=== PATIENT | male | born 2000 | race Caucasian/White ===

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

== ENCOUNTER 2024-07-10 10:53 | Inpatient (IN) | payer OTHER ==
[2024-07-10 11:28] VITALS: BMI 26.6
[2024-07-10] MEDS ORDERED: ACETAMINOPHEN INJECTION 100 ML ONE (11:54)
[2024-07-10 11:58] LABS: BASO % 0.5 % (0-2.0); EOS % 0.6 % (0-4.5); HEMATOCRIT 45.8 % (35.4-49); HEMOGLOBIN 15.3 GM/dL (11.7-16.9); LYMPH % 27.6 % (8-40); MCHC 33.4 g/dl (32.0-35.9); MEAN PLT VOLUME 6.6 fl (7.5-11.1); MONO % 4.1 % (3.8-10.2); NEUT % 67.2 % (42.8-82.8); PLATELET COUNT 278 10^3/uL (134-434); RBC 5.46 M/mm3 (4.00-5.60); WHITE BLOOD COUNT 10.5 K/mm3 (4.0-10.0)
[2024-07-10 12:08] LABS: INR 1.05 (0.83-1.09); PROTHROMBIN TIME (PATIENT) 12.1 SEC (9.7-13.0)
[2024-07-10 12:13] LABS: POTASSIUM 4.8 mmol/L (3.5-5.1)
[2024-07-10 12:15] LABS: ALBUMIN 4.5 g/dl (3.4-5.0); BLOOD UREA NITROGEN 6.6 mg/dL (7-18); CALCIUM 9.9 mg/dL (8.5-10.1)
[2024-07-10 12:19] LABS: CREATININE 0.9 mg/dL (0.55-1.3)
[2024-07-10 12:19] LABS: URINE APPEARANCE CLEAR; URINE BILIRUBIN NEGATIVE (NEGATIVE); URINE COLOR YELLOW; URINE GLUCOSE (UA) NEGATIVE (NEGATIVE); URINE KETONE NEGATIVE (NEGATIVE); URINE LEUK ESTERASE NEGATIVE (NEGATIVE); URINE NITRITE NEGATIVE (NEGATIVE); URINE PROTEIN NEGATIVE (NEGATIVE); URINE UROBILINOGEN 0.2 mg/dL (0.2-1.0)
[2024-07-10 12:21] LABS: TOT PROT 7.9 g/dl (6.4-8.2)
[2024-07-10] MEDS: ACETAMINOPHEN 1000 MG/100 ML BAG IVPB ONE (12:26)
[2024-07-10] MEDS: SODIUM CHLORIDE 1,000 ML IV STA (12:26)
[2024-07-10] MEDS ORDERED: PIPERACILLIN/TAZOB 3.375 GM 3.375 GM/50 ML BAG IVPB ONE (14:54)
[2024-07-10] MEDS: PIPERACILLIN/TAZOB 3.375 GM 3.375 GM in DEXTROSE 5%-WATER - 50 ML IVPB ONE (15:06)
[2024-07-10] MEDS: DEXTROSE 5%-0.2% SALINE - 1,000 ML IV SCH (15:06)
[2024-07-10] MEDS ORDERED: MORPHINE SULFATE 2 MG/ML SYRINGE IVPUSH PRN (16:10)
[2024-07-10] MEDS ORDERED: ACETAMINOPHEN 1000 MG/100 ML BAG IVPB PRN (16:12)
[2024-07-11] MEDS ORDERED: HEPARIN NA (PORCINE) 5,000 UNITS/ML 1ML VIAL ONE (07:07)
[2024-07-11] MEDS ORDERED: BUPIVACAINE HCL/PF 0.25% (2.5MG/ML) 10 ML VIAL ONE ×2 (07:07→11:07)
[2024-07-11] MEDS ORDERED: cefOXitin SODIUM 2 GM VIAL (RESTRICTED TO ID) IVPB ONE (07:07)
[2024-07-11 08:56] LABS: BASO % 0.8 % (0-2.0); EOS % 1.1 % (0-4.5); HEMATOCRIT 43.3 % (35.4-49); HEMOGLOBIN 14.3 GM/dL (11.7-16.9); LYMPH % 29.1 % (8-40); MCH 28.3 pg (25.7-33.7); MEAN CELL VOLUME 85.7 fl (80-96); MEAN PLT VOLUME 7.3 fl (7.5-11.1); MONO % 5.4 % (3.8-10.2); NEUT % 63.6 % (42.8-82.8); PLATELET COUNT 263 10^3/uL (134-434); RBC 5.05 M/mm3 (4.00-5.60); RDW 12.9 % (11.9-15.9); WHITE BLOOD COUNT 6.9 K/mm3 (4.0-10.0)
[2024-07-11 09:18] LABS: POTASSIUM 4.6 mmol/L (3.5-5.1)
[2024-07-11 09:21] LABS: CALCIUM 9.4 mg/dL (8.5-10.1)
[2024-07-11 09:22] LABS: BLOOD UREA NITROGEN 6.6 mg/dL (7-18)
[2024-07-11 09:25] LABS: ALBUMIN 3.8 g/dl (3.4-5.0); CREATININE 0.9 mg/dL (0.55-1.3)
[2024-07-11 09:26] LABS: BILIRUBIN,TOTAL 0.9 mg/dL (0.2-1); TOT PROT 6.9 g/dl (6.4-8.2)
[2024-07-11] MEDS: CEFAZOLIN SODIUM 2 GM in DEXTROSE 5%-WATER 100 ML IVPB SCH (09:48)
[2024-07-11] MEDS ORDERED: MIDAZOLAM HCL 2 MG/2 ML SINGLE DOSE VIAL ONE (11:05)
[2024-07-11] MEDS ORDERED: ROCURONIUM BROMIDE 50 MG/5 ML SYRINGE ONE (11:33)
[2024-07-11] MEDS: BUPIVACAINE HCL/PF 2.5 MG/ML - 30 ML VIAL IJ ONE ×2 (11:42)
[2024-07-11] MEDS ORDERED: oxyCODONE HCL 5 MG TABLET PO PRN (13:12)
[2024-07-11] MEDS: LACTATED RINGERS SOLUTION 1,000 ML/1,000 ML INFUS.BAG IV SCH (13:30)
[2024-07-11] MEDS ORDERED: ACETAMINOPHEN INJECTION 100 ML ONE (13:58)
[2024-07-11] MEDS: ACETAMINOPHEN 1000 MG/100 ML BAG IVPB SCH (14:00)
[2024-07-11] MEDS: DEXTROSE 5%-0.45% SALINE 1,000 ML IV SCH (17:03)
[2024-07-11] MEDS: LACTATED RINGERS SOLUTION 1,000 ML IV SCH (17:04)
[2024-07-11] MEDS: KETOROLAC TROMETHAMINE 15 MG/ML VIAL IVPUSH SCH (19:22)
[2024-07-12 09:11] VITALS: RESP 18
[2024-07-12 10:46] LABS: BASO % 0.2 % (0-2.0); EOS % 0.6 % (0-4.5); LYMPH % 29.5 % (8-40); MCH 28.3 pg (25.7-33.7); MCHC 33.4 g/dl (32.0-35.9); MEAN CELL VOLUME 84.9 fl (80-96); MEAN PLT VOLUME 6.8 fl (7.5-11.1); MONO % 5.9 % (3.8-10.2); NEUT % 63.8 % (42.8-82.8); PLATELET COUNT 240 10^3/uL (134-434); RDW 12.9 % (11.9-15.9)
[2024-07-12 11:08] LABS: POTASSIUM 3.6 mmol/L (3.5-5.1)
[2024-07-12 11:25] LABS: ALBUMIN 3.4 g/dl (3.4-5.0)
[2024-07-12 11:27] LABS: MAGNESIUM 2.2 mg/dL (1.8-2.4)
[2024-07-12 11:29] LABS: BILIRUBIN,TOTAL 0.9 mg/dL (0.2-1); PHOSPHOROUS 3.7 mg/dL (2.5-4.9); TOT PROT 6.2 g/dl (6.4-8.2)
[2024-07-12] MEDS ORDERED: ACETAMINOPHEN 325 MG TABLET (FP) PO PRN (12:00)
[2024-07-12 14:59] VITALS: BP 107/57; PULSE 72; TEMP 98.2
== END 2024-07-12 16:48 | disposition home or self-care (01) | DRG 225 ==
LOC: JER 10:53 → JERBED 15:52 → J5S 20:48
PROVIDERS: ADMIT Internal Medicine; ATTEND Internal Medicine
PROC: 0DTJ4ZZ Resection of Appendix, Percutaneous Endoscopic Approach (ICD-10-PCS; principal; 2024-07-11 07:30)
DX: K35.80 Unspecified acute appendicitis (principal)
CPT/HCPCS: 36415; 74177-TC; 80053; 81003; 83735; 84100; 85025; 85610; 86850; 86900; 86901; 88304-TC; 94760; 99285-25; J0131; J1644; Q9967